=== PATIENT | male | born 1965 | race Caucasian/White ===

== ENCOUNTER → 2017-07-24 | Outpatient (CLI) | payer OTHER ==
[2016-06-16 16:10] VITALS: BP 126/74
--- NOTE | 2017-07-24 13:03 | RAD ---
CT maxillofacial without contrast 07/24/2017 at 1214 hours Indication: Pain in the right after treatment removal. Comparison: None available Technique: Multiple axial CT images of the maxilla facial structures obtained without intravenous contrast. Coronal and sagittal reformats are provided. Findings: Lack of intravenous contrast limits evaluation of the soft tissue structures. There is a lucency involving the right mandible at the roots of teeth 30-32. Area of lucency extends through the lateral cortex. There is asymmetric soft tissue attenuation deep to the platysma in the region of the right buccal mucosa measuring approximately 18 x 8 mm. No additional periapical lucencies are identified. There has portions of the orbits are normal. Paranasal sinuses are well aerated. Mastoid air cells are well aerated. No significant abnormality involving the visualized portions of the upper cervical spine. Parapharyngeal space is maintained. Parotid and submandibular glands are normal in appearance. Airway is patent. Floor of mouth appears normal. Impression: 1. Evaluation is limited by lack of intravenous contrast. However, there is lucency involving the right mandible in the region of the teeth 30-32. There appears to be lateral cortical breakthrough with soft tissue density along the buccal mucosal. This finding may represent a small abscess measuring about 18 x 8 mm. However this is difficult to confirm without intravenous contrast. Alternatively, findings may represent postsurgical changes from recent tooth extraction. PQRS Compliance Statement: One or more of the following individualized dose reduction techniques were utilized for this examination: 1. Automated exposure control 2. Adjustment of the mA and/or kV according to patient size 3. Use of iterative reconstruction technique
== END | disposition home or self-care (01) ==
LOC: CT 12:00
PROVIDERS: ATTEND General Practice
DX: M27.2 Inflammatory conditions of jaws (principal)
CPT/HCPCS: 70486

== ENCOUNTER → 2017-12-08 | Outpatient (CLI) | payer OTHER ==
[2016-06-16 16:10] VITALS: BP 126/74
--- NOTE | 2017-12-09 13:58 | RAD ---
CT cervical spine and lumbar spine without contrast 12/08/2017 Clinical indication: Back and neck pain with radiculopathy. Comparison: None. Technique: Multiple CT images of the cervical and lumbar spine were obtained without contrast. PQRS Compliance Statement: One or more of the following individualized dose reduction techniques were utilized for this examination: 1. Automated exposure control 2. Adjustment of the mA and/or kV according to patient size 3. Use of iterative reconstruction technique Findings: Cervical spine: There is a smoothly marginated ossific density measuring 1.2 cm TV series 3/image 23 which articulates with the posterior superior aspect of the midline C1 anterior arch. There is widening of the predental space measuring 0.4 cm series 6/image 57. Prior posterior instrumented C5-C6 with vertical rods and bilateral facet screws and partial ankylosis of the intervertebral space at C5-C6. There is 2 mm anterolisthesis C4 on C5. The vertebral body heights are otherwise maintained. There is mild disc degeneration at C7-T1 with minimal anterior marginal osteophyte formation. No significant neural foraminal narrowing. The examination is not optimized for evaluation of spinal canal narrowing. The paraspinal soft tissues are unremarkable. Lumbar spine: There is left convexity lumbar scoliosis. There are 5 nonrib-bearing lumbar vertebral bodies with the first considered L1 for the purposes of this dictation. There is bilateral L5 spondylolysis and grade 1 anterolisthesis measuring 6 mm. The vertebral body heights are maintained. There is multilevel disc degeneration with disc space narrowing, endplate sclerosis and marginal osteophyte formation greatest at the right L aspect of L2-L3. The paraspinal soft tissues are unremarkable. Calcified atheromatous disease of the abdominal aorta. Segmental analysis: At T12-L1, no significant spinal canal or neuroforaminal narrowing. At L1-L2, shallow disc bulging with no significant spinal canal or neuroforaminal narrowing. At L2-L3, shallow concentric disc bulging with facet hypertrophy and right foraminal/extra foraminal disc protrusion resulting in severe right neural foraminal narrowing with no significant spinal canal narrowing. At L3-L4, concentric disc bulging and facet hypertrophy resulting in mild spinal canal and severe right neural foraminal narrowing. At L4-L5, concentric disc bulging, bilateral facet hypertrophy resulting in moderate bilateral neural foraminal narrowing. At L5-S1, grade 1 anterolisthesis and bilateral facet hypertrophy resulting in severe bilateral neural foraminal narrowing. Impression: Cervical spine: 1. Prior C5-C6 posterior spinal instrumentation with partial intervertebral ankylosis. 2. Abnormal widening of the predental space measuring 4 mm which has developed when compared to the CT maxillofacial 07/24/2017 examination, concerning for atlantoaxial instability. Surgical consult is recommended for further evaluation. 3. Well-corticated ossific density off the tip of the odontoid which articulates with the posterior aspect of the anterior C1 arch. Finding may represent an old ununited dens fracture versus an os odontoideum. 4. Grade 1 anterolisthesis C4 on C5. Lumbar spine: 1. Left convexity lumbar scoliosis. 2. Bilateral L5 spondylolysis and grade 1 anterolisthesis. 3. Lumbar spondylosis and scoliosis resulting in multilevel neural foraminal stenosis, greatest to a severe degree, on the right at L2-L3 and L3-L4, and bilaterally at L5-S1. 4. Additional levels of neural foraminal narrowing, as detailed above. Impressions 1-3 of the cervical spine section were discussed with Dr. Jordyn Langston by telephone at 2:00 PM 12/08/[address] Anderson Mustafa.
== END | disposition home or self-care (01) ==
LOC: CT 10:35
PROVIDERS: ATTEND Anesthesiology Pain Medicine
DX: M54.12 Radiculopathy, cervical region (principal); M54.16 Radiculopathy, lumbar region; M48.061 Spinal stenosis, lumbar region without neurogenic claudication; M41.86 Other forms of scoliosis, lumbar region; M43.06 Spondylolysis, lumbar region; M47.897 Other spondylosis, lumbosacral region
CPT/HCPCS: 72125; 72131

== ENCOUNTER → 2017-12-21 | Outpatient (CLI) | payer OTHER ==
[2016-06-16 16:10] VITALS: BP 126/74
[2017-12-21 12:01] LABS: BASO % 1 % (0-3); EOS # 0.3 x10^3/uL (0.0-0.7); EOS % 3 % (0-3); HEMATOCRIT 45.4 % (39.0-53.0); LYMPH # 2.7 x10^3/uL (1.0-4.8); LYMPH % 29 % (24-48); MEAN CORPUSCULAR HEMOGLOBIN 29 pg (25-35); MEAN CORPUSCULAR HGB CONC 33 g/dL (31-37); MEAN CORPUSCULAR VOLUME 88 fL (79-100); MONO # 0.7 x10^3/uL (0.0-1.1); MONO % 7 % (0-9); NEUT # 5.7 x10^3uL (1.8-7.7); NEUT % 61 % (31-73); PLATELET COUNT 151 x10^3/uL (140-400); RED BLOOD COUNT 5.18 x10^6/uL (4.30-5.70); RED CELL DISTRIBUTION WIDTH 14.4 % (11.5-14.5); WHITE BLOOD COUNT 9.4 x10^3/uL (4.0-11.0)
[2017-12-21 12:14] LABS: ALBUMIN 3.3 g/dL (3.4-5.0); ALK PHOS 87 U/L (46-116); ALT (SGPT) 22 U/L (16-63); ANION GAP 8 (6-14); AST (SGOT) 30 U/L (15-37); BLOOD UREA NITROGEN 12 mg/dL (8-26); CALCIUM 8.4 mg/dL (8.5-10.1); CARBON DIOXIDE 27 mmol/L (21-32); CHLORIDE 104 mmol/L (98-107); GFR 77.9; GLUCOSE 152 mg/dL (70-99); POTASSIUM 4.9 mmol/L (3.5-5.1); SODIUM 139 mmol/L (136-145); TOTAL BILIRUBIN 0.4 mg/dL (0.2-1.0); TOTAL PROTEIN 6.9 g/dL (6.4-8.2)
[2017-12-21 12:23] LABS: DIRECT BILIRUBIN < 0.1 mg/dL (0.0-0.2)
== END | disposition home or self-care (01) ==
LOC: SPEC 11:04
PROVIDERS: ATTEND General Practice
DX: M27.2 Inflammatory conditions of jaws (principal); K04.7 Periapical abscess without sinus; F17.200 Nicotine dependence, unspecified, uncomplicated
CPT/HCPCS: 36415; 80048; 80076; 85025

== ENCOUNTER → 2017-12-28 | Outpatient (CLI) | payer OTHER ==
[2016-06-16 16:10] VITALS: BP 126/74
[2017-12-28 12:42] LABS: BASO % 0 % (0-3); EOS # 0.1 x10^3/uL (0.0-0.7); EOS % 1 % (0-3); HEMATOCRIT 47.9 % (39.0-53.0); HEMOGLOBIN 15.8 g/dL (13.0-17.5); LYMPH # 3.8 x10^3/uL (1.0-4.8); LYMPH % 37 % (24-48); MEAN CORPUSCULAR HEMOGLOBIN 29 pg (25-35); MEAN CORPUSCULAR HGB CONC 33 g/dL (31-37); MEAN CORPUSCULAR VOLUME 87 fL (79-100); MONO # 0.6 x10^3/uL (0.0-1.1); MONO % 6 % (0-9); NEUT # 5.6 x10^3uL (1.8-7.7); NEUT % 55 % (31-73); PLATELET COUNT 219 x10^3/uL (140-400); RED BLOOD COUNT 5.51 x10^6/uL (4.30-5.70); RED CELL DISTRIBUTION WIDTH 14.2 % (11.5-14.5); WHITE BLOOD COUNT 10.2 x10^3/uL (4.0-11.0)
[2017-12-28 12:57] LABS: ALBUMIN 3.4 g/dL (3.4-5.0); CREATININE 1.1 mg/dL (0.7-1.3); DIRECT BILIRUBIN 0.1 mg/dL (0.0-0.2); GFR 69.8; POTASSIUM 4.8 mmol/L (3.5-5.1); TOTAL BILIRUBIN 0.4 mg/dL (0.2-1.0); TOTAL PROTEIN 7.4 g/dL (6.4-8.2)
== END | disposition home or self-care (01) ==
LOC: SPEC 12:16
PROVIDERS: ATTEND General Practice
DX: M27.2 Inflammatory conditions of jaws (principal); K04.7 Periapical abscess without sinus
CPT/HCPCS: 36415; 80048; 80076; 85025

== ENCOUNTER → 2018-01-04 | Outpatient (CLI) | payer OTHER ==
[2016-06-16 16:10] VITALS: BP 126/74
[2018-01-04 12:14] LABS: BASO # 0.1 x10^3/uL (0.0-0.2); BASO % 1 % (0-3); EOS # 0.2 x10^3/uL (0.0-0.7); EOS % 2 % (0-3); HEMATOCRIT 47.3 % (39.0-53.0); HEMOGLOBIN 15.6 g/dL (13.0-17.5); LYMPH # 3.3 x10^3/uL (1.0-4.8); LYMPH % 37 % (24-48); MEAN CORPUSCULAR HEMOGLOBIN 28 pg (25-35); MEAN CORPUSCULAR HGB CONC 33 g/dL (31-37); MEAN CORPUSCULAR VOLUME 86 fL (79-100); MONO # 0.4 x10^3/uL (0.0-1.1); MONO % 5 % (0-9); NEUT # 4.9 x10^3uL (1.8-7.7); NEUT % 56 % (31-73); PLATELET COUNT 217 x10^3/uL (140-400); RED BLOOD COUNT 5.52 x10^6/uL (4.30-5.70); RED CELL DISTRIBUTION WIDTH 14.5 % (11.5-14.5); WHITE BLOOD COUNT 8.8 x10^3/uL (4.0-11.0)
== END | disposition home or self-care (01) ==
LOC: SPEC 11:33
PROVIDERS: ATTEND General Practice
DX: M27.2 Inflammatory conditions of jaws (principal); K04.7 Periapical abscess without sinus
CPT/HCPCS: 36415; 85025

== ENCOUNTER → 2018-01-11 | Outpatient (CLI) | payer OTHER ==
[2016-06-16 16:10] VITALS: BP 126/74
[2018-01-11 13:10] LABS: BASO # 0.1 x10^3/uL (0.0-0.2); BASO % 1 % (0-3); EOS # 0.2 x10^3/uL (0.0-0.7); EOS % 3 % (0-3); HEMATOCRIT 46.2 % (39.0-53.0); HEMOGLOBIN 15.3 g/dL (13.0-17.5); LYMPH # 3.2 x10^3/uL (1.0-4.8); LYMPH % 44 % (24-48); MEAN CORPUSCULAR HEMOGLOBIN 28 pg (25-35); MEAN CORPUSCULAR HGB CONC 33 g/dL (31-37); MEAN CORPUSCULAR VOLUME 85 fL (79-100); MONO # 0.4 x10^3/uL (0.0-1.1); MONO % 6 % (0-9); NEUT # 3.4 x10^3uL (1.8-7.7); NEUT % 46 % (31-73); PLATELET COUNT 199 x10^3/uL (140-400); RED BLOOD COUNT 5.43 x10^6/uL (4.30-5.70); RED CELL DISTRIBUTION WIDTH 14.5 % (11.5-14.5); WHITE BLOOD COUNT 7.3 x10^3/uL (4.0-11.0)
[2018-01-11 13:19] LABS: ALBUMIN 3.3 g/dL (3.4-5.0); CALCIUM 8.6 mg/dL (8.5-10.1); CREATININE 0.9 mg/dL (0.7-1.3); DIRECT BILIRUBIN 0.1 mg/dL (0.0-0.2); GFR 87.6; TOTAL BILIRUBIN 0.4 mg/dL (0.2-1.0); TOTAL PROTEIN 7.1 g/dL (6.4-8.2)
[2018-01-11 13:25] LABS: POTASSIUM 4.7 mmol/L (3.5-5.1)
== END | disposition home or self-care (01) ==
LOC: SPEC 12:37
PROVIDERS: ATTEND General Practice
DX: M27.2 Inflammatory conditions of jaws (principal); K04.7 Periapical abscess without sinus
CPT/HCPCS: 36415; 80048; 80076; 85025

== ENCOUNTER → 2018-01-18 | Outpatient (CLI) | payer OTHER ==
[2016-06-16 16:10] VITALS: BP 126/74
[2018-01-18 13:06] LABS: BASO # 0.1 x10^3/uL (0.0-0.2); BASO % 1 % (0-3); EOS # 0.1 x10^3/uL (0.0-0.7); EOS % 2 % (0-3); HEMATOCRIT 48.5 % (39.0-53.0); HEMOGLOBIN 16.2 g/dL (13.0-17.5); LYMPH # 3.1 x10^3/uL (1.0-4.8); LYMPH % 40 % (24-48); MEAN CORPUSCULAR HEMOGLOBIN 28 pg (25-35); MEAN CORPUSCULAR HGB CONC 33 g/dL (31-37); MEAN CORPUSCULAR VOLUME 84 fL (79-100); MONO # 0.4 x10^3/uL (0.0-1.1); MONO % 6 % (0-9); NEUT % 52 % (31-73); PLATELET COUNT 184 x10^3/uL (140-400); RED BLOOD COUNT 5.76 x10^6/uL (4.30-5.70); RED CELL DISTRIBUTION WIDTH 14.3 % (11.5-14.5); WHITE BLOOD COUNT 7.7 x10^3/uL (4.0-11.0)
[2018-01-18 13:12] LABS: ALBUMIN 3.5 g/dL (3.4-5.0); ALK PHOS 86 U/L (46-116); ALT (SGPT) 32 U/L (16-63); ANION GAP 7 (6-14); BLOOD UREA NITROGEN 14 mg/dL (8-26); CALCIUM 8.7 mg/dL (8.5-10.1); CARBON DIOXIDE 28 mmol/L (21-32); CHLORIDE 101 mmol/L (98-107); CREATININE 0.9 mg/dL (0.7-1.3); GFR 87.6; GLUCOSE 159 mg/dL (70-99); SODIUM 136 mmol/L (136-145); TOTAL BILIRUBIN 0.5 mg/dL (0.2-1.0); TOTAL PROTEIN 7.5 g/dL (6.4-8.2)
[2018-01-18 13:13] LABS: DIRECT BILIRUBIN < 0.1 mg/dL (0.0-0.2)
[2018-01-18 13:14] LABS: AST (SGOT) 35 U/L (15-37); POTASSIUM 5.3 mmol/L (3.5-5.1)
== END | disposition home or self-care (01) ==
LOC: SPEC 10:55
PROVIDERS: ATTEND General Practice
DX: M27.2 Inflammatory conditions of jaws (principal); K04.7 Periapical abscess without sinus
CPT/HCPCS: 36415; 80048; 80076; 85025

== ENCOUNTER → 2018-01-25 | Outpatient (CLI) | payer OTHER ==
[2016-06-16 16:10] VITALS: BP 126/74
[2018-01-25 12:43] LABS: BASO % 1 % (0-3); EOS # 0.2 x10^3/uL (0.0-0.7); EOS % 2 % (0-3); HEMATOCRIT 47.9 % (39.0-53.0); LYMPH # 3.2 x10^3/uL (1.0-4.8); LYMPH % 49 % (24-48); MEAN CORPUSCULAR HEMOGLOBIN 28 pg (25-35); MEAN CORPUSCULAR HGB CONC 33 g/dL (31-37); MEAN CORPUSCULAR VOLUME 84 fL (79-100); MONO # 0.4 x10^3/uL (0.0-1.1); MONO % 6 % (0-9); NEUT # 2.8 x10^3uL (1.8-7.7); NEUT % 43 % (31-73); PLATELET COUNT 186 x10^3/uL (140-400); RED BLOOD COUNT 5.72 x10^6/uL (4.30-5.70); RED CELL DISTRIBUTION WIDTH 14.3 % (11.5-14.5); WHITE BLOOD COUNT 6.7 x10^3/uL (4.0-11.0)
== END | disposition home or self-care (01) ==
LOC: SPEC 11:48
PROVIDERS: ATTEND General Practice
DX: M27.2 Inflammatory conditions of jaws (principal)
CPT/HCPCS: 36415; 85025

== ENCOUNTER 2018-03-28 17:20 | Emergency (ER) | payer OTHER ==
[~2018-03-28] VITALS: Ht 185.4 cm; Wt 145.1 kg
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
[2018-03-28] MEDS ORDERED: IV RINGERS SOLUTION,LACTATED 1,000 ML IV SCH (17:42)
[2018-03-28] MEDS ORDERED: KETOROLAC 15 MG/ML VIAL. IV ONE (18:00)
[2018-03-28] MEDS ORDERED: MAGNESIUM HYDROXIDE 2,400 MG/30 ML ORAL.SUSP. PO ONE (18:00)
[2018-03-28] MEDS ORDERED: methylPREDNISolone ACETATE 40 MG/ML VIAL. IM ONE (18:00)
[2018-03-28] MEDS ORDERED: MORPHINE SULFATE 10 MG/ML SYRINGE. SQ ONE ×2 (18:00→22:00)
[2018-03-28] MEDS ORDERED: ORPHENADRINE CITRATE 60 MG/2 ML VIAL. IV ONE (18:00)
--- NOTE | 2018-03-28 18:20 | EKG ---
[address] [address] Test Date: 2018-03-28 Test Time: 17:56:09 Pat Name: MARCELO BROWERDanutaTricia Department: Room: Gender: M Cupola Tapper: ADOLPH : 1965 Requested By: MARICEL VUONG Order Number: [id number] Reading MD: Measurements Intervals [place] Rate: 96 P: 42 OH: 130 QRS: 85 QRSD: 124 T: 27 QT: 342 QTc: 433 Interpretive Statements SINUS RHYTHM RIGHT BUNDLE BRANCH BLOCK RVH WITH REPOLARIZATION ABNORMALITY ABNORMAL ECG RI6.01 No previous ECG available for comparison
[2018-03-28 18:33] LABS: ALBUMIN 3.4 g/dL (3.4-5.0); CALCIUM 8.8 mg/dL (8.5-10.1); CREATININE 1.6 mg/dL (0.7-1.3); DIRECT BILIRUBIN 0.1 mg/dL (0.0-0.2); GFR 45.1; MAGNESIUM 1.5 mg/dL (1.8-2.4); POTASSIUM 4.4 mmol/L (3.5-5.1); TOTAL BILIRUBIN 0.6 mg/dL (0.2-1.0); TOTAL PROTEIN 7.8 g/dL (6.4-8.2)
[2018-03-28 18:46] LABS: BASO % 0 % (0-3); EOS % 0 % (0-3); HEMATOCRIT 45.7 % (39.0-53.0); HEMOGLOBIN 15.6 g/dL (13.0-17.5); LYMPH # 6.6 x10^3/uL (1.0-4.8); LYMPH % 43 % (24-48); MEAN CORPUSCULAR HEMOGLOBIN 28 pg (25-35); MEAN CORPUSCULAR HGB CONC 34 g/dL (31-37); MEAN CORPUSCULAR VOLUME 81 fL (79-100); MONO # 7.8 x10^3/uL (0.0-1.1); MONO % 51 % (0-9); NEUT # 0.8 x10^3uL (1.8-7.7); NEUT % 6 % (31-73); RED BLOOD COUNT 5.63 x10^6/uL (4.30-5.70); RED CELL DISTRIBUTION WIDTH 17.8 % (11.5-14.5); WHITE BLOOD COUNT 15.3 x10^3/uL (4.0-11.0)
[2018-03-28 18:56] LABS: PLATELET COUNT 5 x10^3/uL (140-400)
[2018-03-28] MEDS ORDERED: IOHEXOL 300 MG/ML 75 ML VIAL. IV ONE (20:00)
[2018-03-28] MEDS ORDERED: VANCOMYCIN 2 GM in IV NORMAL SALINE 500ML 500 ML IV ONE (20:00)
[2018-03-28] MEDS ORDERED: IV RINGERS SOLUTION,LACTATED 1,000 ML IV ONE (20:00)
[2018-03-28 20:05] LABS: BASO % 0 % (0-3); EOS % 0 % (0-3); HEMATOCRIT 43.8 % (39.0-53.0); HEMOGLOBIN 14.9 g/dL (13.0-17.5); LYMPH # 7.2 x10^3/uL (1.0-4.8); LYMPH % 42 % (24-48); MEAN CORPUSCULAR HEMOGLOBIN 28 pg (25-35); MEAN CORPUSCULAR HGB CONC 34 g/dL (31-37); MEAN CORPUSCULAR VOLUME 81 fL (79-100); MONO # 8.9 x10^3/uL (0.0-1.1); MONO % 52 % (0-9); NEUT % 6 % (31-73); RED BLOOD COUNT 5.39 x10^6/uL (4.30-5.70); RED CELL DISTRIBUTION WIDTH 17.3 % (11.5-14.5); WHITE BLOOD COUNT 17.1 x10^3/uL (4.0-11.0)
[2018-03-28 20:08] LABS: PLATELET COUNT 5 x10^3/uL (140-400)
[2018-03-28] MEDS ORDERED: IV NORMAL SALINE 500ML 500 ML ONE ×3 (20:10→20:27)
[2018-03-28] MEDS ORDERED: VANCOMYCIN 1 GM VIAL. ONE ×2 (20:11→20:27)
--- NOTE | 2018-03-28 21:02 | RAD ---
CT lumbar spine with and without contrast 03/28/2018. Reason for exam: Severe back pain. Abnormal white blood cell count and low platelet count. History of prior surgery. CT images were performed through the lumbar spine before and after injection of 60 mL Omnipaque 300. Exposure: One or more of the following individualized dose reduction techniques were utilized for this examination: 1. Automated exposure control 2. Adjustment of the mA and/or kV according to patient size 3. Use of iterative reconstruction technique. Comparison is made with a prior CT of 12/08/2017. FINDINGS: There is some scoliotic curvature convex to the left. There continues to be some anterior offset of L5 on S1 due to pars defects. No acute fracture or destructive process is seen. Evaluation of the soft tissue structures of the canal is limited without intrathecal contrast. There is likely at least moderate spinal stenosis at L3-4. There is no obvious large new disc protrusion. Postcontrast images show no area of abnormal enhancement. There is no obvious epidural collection. No paraspinal soft tissue abnormality is seen. IMPRESSION: No apparent acute abnormality or change from the prior CT. Electronically signed by: Denilson Butler Jr., MD (03/28/2018 8:59 PM) [facility]
--- NOTE | 2018-03-28 21:03 | RAD ---
EXAM: Abdomen, 2 views. HISTORY: Leukocytosis. COMPARISON: None. FINDINGS: Frontal upright and supine views of the abdomen are obtained. There is gas and stool within the colon. There is contrast within the renal collecting system due to recent contrast-enhanced exam. There is no free air. There is left lower lobe atelectasis or scarring. There is lumbar scoliosis. IMPRESSION: Nonobstructive bowel gas pattern. Electronically signed by: Claudia Kinsey MD (03/28/2018 9:00 PM) [facility]
[2018-03-28 21:30] LABS: BARBITURATES NEG (NEG); BENZODIAZEPINES POS (NEG); CANNABINOIDS POS (NEG); COCAINE NEG (NEG); METHADONE NEG (NEG); OPIATES POS (NEG); PHENCYCLIDINE NEG (NEG)
[2018-03-28 21:34] LABS: AMPHETAMINE/METHAMPHETAMINE NEG (NEG)
[2018-03-28 21:37] LABS: COLOR,URINE YELLOW
[2018-03-28 21:38] LABS: BACTERIA,URINE 0 /HPF (0-FEW); BILIRUBIN,URINE NEG (NEG); CLARITY,URINE CLEAR; GLUCOSE,URINE NEG (NEG); NITRITE,URINE NEG (NEG); RBC,URINE OCC /HPF (0-2); SQUAMOUS EPITHELIAL CELL,UR OCC /LPF; UROBILINOGEN,URINE 0.2 mg/dL (0.2 mg/dL); WBC,URINE OCC /HPF (0-4)
[2018-03-28 22:04] VITALS: BP 133/70
[2018-03-28 22:48] LABS: % ATYL 13 % (0-0); % BLASTS 13 % (0-0); % LYMPHS 51 % (24-48); % MONOS 14 % (0-10)
[2018-03-28 22:49] LABS: PLT ESTIMATE DECREASED (ADEQUATE)
[2018-03-28 22:52] LABS: OVALOCYTES OCC
[2018-03-28 22:53] LABS: STOMATOCYTES OCC
[2018-03-30 09:52] LABS: % SEGS 9 % (35-66)
== END 2018-03-28 22:13 | disposition short-term general hospital (02) ==
LOC: ER 17:20
DX: M54.5 Low back pain (principal); D69.6 Thrombocytopenia, unspecified; K59.00 Constipation, unspecified; E87.1 Hypo-osmolality and hyponatremia; R79.82 Elevated C-reactive protein (CRP); R79.89 Other specified abnormal findings of blood chemistry; R74.0 Nonspecific elevation of levels of transaminase and lactic acid dehydrogenase [LDH]; M19.90 Unspecified osteoarthritis, unspecified site; I10 Essential (primary) hypertension; F17.210 Nicotine dependence, cigarettes, uncomplicated
CPT/HCPCS: 36415; 71045; 72133; 74021; 80048; 80076; 80307; 81001; 82550; 83735; 83880; 84484; 85007; 85025; 85379; 85610; 85651; 85730; 86140; 86850; 86900; 86901; 87040; 93005; 96361; 96365; 96372; 96375; 99291; G0480; J1030; J1885; J2270; J2360; J3370; J7040; J7120; Q9967; G0479

== ENCOUNTER 2018-06-11 14:36 | Emergency (ER) | payer OTHER ==
[~2018-06-11] VITALS: Ht 180.3 cm; Wt 110.7 kg
[2018-06-11 15:04] VITALS: BP 128/44
--- NOTE | 2018-06-11 15:17 | RAD ---
CHEST AP ONLY Clinical indications: PICC LINE DISLODGED COMPARISON: March 28, 2018. Findings: A left upper extremity PICC line is in place and tip is seen within the upper superior vena cava. No acute lung infiltrate or pleural effusion or pulmonary edema or lung mass or pneumothorax is seen. The heart size, pulmonary vasculature, mediastinum and both balta are unremarkable. Impression: No acute radiographic abnormality is seen. Electronically signed by: Christopher Davila MD (06/11/2018 3:14 PM) [place] [id number]
--- NOTE | 2018-06-11 15:20 | PHYS DOC ---
Past History Past Medical History: Arthritis, Hypertension, Other Past Surgical History: Other Smoking: Cigarettes Alcohol Use: Occasionally Drug Use: None Adult General Chief Complaint Chief Complaint: PICC line came out HPI HPI 53-year-old male patient with history of leukemia on chemotherapy had PICC placement in left upper extremity at [facility] about 2 months ago and was discharged from rehabilitation yesterday. Patient state the PICC line was dislodged about 1 cm today and he was not sure if he is allowed to use his PICC line. Patient denies fever and chills and pain in his arm or chest. Review of Systems Review of Systems Constitutional: Denies fever or chills [] Eyes: Denies change in visual acuity, redness, or eye pain [] HENT: Denies nasal congestion or sore throat [] Respiratory: Denies cough or shortness of breath [] Cardiovascular: No additional information not addressed in HPI [] GI: Denies abdominal pain, nausea, vomiting, bloody stools or diarrhea [] : Denies dysuria or hematuria [] Musculoskeletal: Denies back pain or joint pain [] Integument: Denies rash or skin lesions [] Neurologic: Denies headache, focal weakness or sensory changes [] Endocrine: Denies polyuria or polydipsia [] All other systems were reviewed and found to be within normal limits, except as documented in this note. Allergies Allergies Allergies Coded Allergies Type Severity Reaction Last Updated Verified No Known Drug Allergies 06/16/16 No Physical Exam Physical Exam Constitutional: No acute distress, non-toxic appearance, pale. [] HENT: Normocephalic, atraumatic, oropharynx moist. [] Eyes: PERRLA, EOMI, conjunctiva normal, no discharge. [] Neck: Normal range of motion, no tenderness, supple, no stridor. [] Cardiovascular:Heart rate regular rhythm, no murmur [] Lungs & Thorax: Bilateral breath sounds clear to auscultation [] Extremities: No tenderness, no cyanosis, no clubbing, ROM intact, no edema left upper extremity PICC line placement in brachial area without sign of infection Neurologic: Alert and oriented X 3, normal motor function, normal sensory function, no focal deficits noted. [] Psychologic: Affect normal, judgement normal, mood normal. [] EKG EKG [] Radiology/Procedures Radiology/Procedures [[address] [address] IMAGING REPORT Signed PATIENT: MARCELO CARRION V ACCOUNT: [id number] : 1965 LOCATION: ER AGE: 53 SEX: M EXAM STATUS: REG ER ORD. PHYSICIAN: RICCARDO LONGO MD REASON: PICC line catheter dislodged PROCEDURE: CHEST AP ONLY CHEST AP ONLY Clinical indications: PICC LINE DISLODGED COMPARISON: March 28, 2018. Findings: A left upper extremity PICC line is in place and tip is seen within the upper superior vena cava. No acute lung infiltrate or pleural effusion or pulmonary edema or lung mass or pneumothorax is seen. The heart size, pulmonary vasculature, mediastinum and both balta are unremarkable. Impression: No acute radiographic abnormality is seen. Electronically signed by: Felipa Davila MD (06/11/2018 3:14 PM) [facility] DICTATED AND SIGNED BY: FELIPA DAVILA MD DATE: 06/11/18 1512 CC: ELIZABETH GARCIA DO; RICCARDO LONGO MD ~ ] Course & Med Decision Making Course & Med Decision Making Pertinent Imaging studies reviewed. (See chart for details) Evaluation of patient in ER showed 53-year-old male patient presented because of dislodged PICC line. X-ray showed patient is in good place. PICC line was fixed in place with dressing and [place]. [] Dragon Disclaimer Dragon Disclaimer This electronic medical record was generated, in whole or in part, using a voice recognition dictation system. Departure Departure: Impression: Primary Impression: PIC line (peripherally inserted central catheter) flush Disposition: HOME, SELF-CARE (at 1525) Condition: STABLE Referrals: ELIZABETH GARCIA DO (PCP) Patient Instructions: PICC Home Guide Additional Instructions: Follow-up with your oncologist next week as scheduled Return to ER if not getting better RICCARDO LONGO MD Jun 11, 2018 15:20
== END 2018-06-11 15:36 | disposition home or self-care (01) ==
LOC: ER 14:36
DX: Z45.2 Encounter for adjustment and management of vascular access device (principal); M19.90 Unspecified osteoarthritis, unspecified site; I10 Essential (primary) hypertension; F17.210 Nicotine dependence, cigarettes, uncomplicated; Z85.6 Personal history of leukemia
CPT/HCPCS: 71045; 99285

== ENCOUNTER 2018-07-15 21:08 | Emergency (ER) | payer OTHER ==
[~2018-07-15] VITALS: Ht 180.3 cm; Wt 110.7 kg
[2018-07-15 21:15] VITALS: BP 142/67
--- NOTE | 2018-07-15 21:25 | ED.ADGEN ---
Past History Past Medical History: Cancer, COPD, Hypertension, Other Past Surgical History: Other Smoking: Cigarettes Alcohol Use: None Drug Use: None Adult General Chief Complaint Chief Complaint PICC line complication HPI HPI The patient has ALL followed at [facility]. He is getting chemotherapy from . Today, his PICC line dressing came loose and he is coming in for a dressing change. He has no complaints. He's had no fevers, cough or pain. He noted no bleeding from his left arm PICC line site. He normally follows up at [facility] for his infusions Review of Systems Review of Systems Constitutional: Denies fever or chills Eyes: Denies change in visual acuity, redness, or eye pain HENT: Denies nasal congestion or sore throat Respiratory: Denies cough or shortness of breath Cardiovascular: No additional information not addressed in HPI GI: Denies abdominal pain, nausea, vomiting, bloody stools or diarrhea : Denies dysuria or hematuria Musculoskeletal: Denies back pain or joint pain Integument: Denies rash or skin lesions Neurologic: Denies headache, focal weakness or sensory changes Endocrine: Denies polyuria or polydipsia All other systems were reviewed and found to be within normal limits, except as documented in this note. Allergies Allergies Allergies Coded Allergies Type Severity Reaction Last Updated Verified chlorhexidine Allergy Severe 07/15/18 Yes Physical Exam Physical Exam Constitutional: Well developed, well nourished, no acute distress, non-toxic appearance. HENT: Normocephalic, atraumatic, bilateral external ears normal, oropharynx moist, no oral exudates, nose normal. Eyes: PERRLA, EOMI, conjunctiva normal, no discharge. Neck: Normal range of motion, no tenderness, supple, no stridor. Cardiovascular:Heart rate regular rhythm, no murmur Lungs & Thorax: Bilateral breath sounds clear to auscultation Abdomen: Bowel sounds normal, soft, no tenderness, no masses, no pulsatile masses. Skin: Warm, dry, no erythema, no rash. Back: No tenderness, no CVA tenderness. Extremities: No tenderness, no cyanosis, no clubbing, ROM intact, no edema. Left arm PICC line site intact, no bleeding, erythema or swelling. No warmth. Neurologic: Alert and oriented X 3, normal motor function, normal sensory function, no focal deficits noted. Psychologic: Affect normal, judgement normal, mood normal. Current Patient Data Vital Signs Vital Signs Date Time Temp Pulse Resp B/P (MAP) Pulse Ox O2 Delivery O2 Flow Rate FiO2 07/15/18 21:15 98.2 114 20 97 Room Air EKG EKG [] Radiology/Procedures Radiology/Procedures [] Course & Med Decision Making Course & Med Decision Making Emergency Department Course Patient presents for PICC line evaluation DDx- wound infection, cellulitis, PICC line dislodged The patient was stable in the ED. PICC line dressing was changed. PICC line site intact, no erythema warmth or bleeding. Patient will follow-up with his PCP for further evaluation. Final Impression Final Impression Clinical impression PICC line dressing change Dragon Disclaimer Dragon Disclaimer This electronic medical record was generated, in whole or in part, using a voice recognition dictation system. Departure Departure: Impression: Primary Impression: Complication associated with peripherally inserted central catheter Disposition: HOME, SELF-CARE Condition: STABLE Patient Instructions: PICC Home Guide Additional Instructions: Follow-up with your primary doctor tomorrow for further evaluation If you develop pain, bleeding, redness, fevers, pus drainage return to the emergency department immediately WICHO NG MD Jul 15, 2018 21:25
== END 2018-07-15 22:03 | disposition home or self-care (01) ==
LOC: ER 21:08
DX: T82.598A Other mechanical complication of other cardiac and vascular devices and implants, initial encounter (principal); J44.9 Chronic obstructive pulmonary disease, unspecified; I10 Essential (primary) hypertension; F17.210 Nicotine dependence, cigarettes, uncomplicated; Z88.8 Allergy status to other drugs, medicaments and biological substances
CPT/HCPCS: 99285